=== PATIENT | female | born 2000 | race Caucasian/White ===

== ENCOUNTER 2025-08-20 12:46 | Emergency (ER) | payer SELFPAY ==
[~2025-08-20] VITALS: Ht 152.4 cm; Wt 79.5 kg
[2025-08-20] MEDS ORDERED: VENTAER INH (15:22)
[2025-08-20] MEDS: ALBUTEROL 90 MCG/ACT 8 GM HFA INHALER INH ONE (15:39)
[2025-08-20 15:44] VITALS: BP 140/72; TEMP 98.5; O2SAT 97
== END 2025-08-20 15:45 | disposition home or self-care (01) ==
LOC: M ED 12:46
DX: J20.6 Acute bronchitis due to rhinovirus (principal); J45.909 Unspecified asthma, uncomplicated; F17.200 Nicotine dependence, unspecified, uncomplicated; Z88.1 Allergy status to other antibiotic agents; Z79.52 Long term (current) use of systemic steroids